=== PATIENT | female | born 1990 | race Caucasian/White ===

== ENCOUNTER 2017-04-06 09:01 | Day surgery (SDC) | payer OTHER ==
[2017-03-30 13:53] LABS: BASOPHIL % 0.4 % (0-2); PLATELET COUNT 237 x10^3mcL (130-400)
[2017-03-30 14:00] LABS: RED CELL DISTRIBUTION WIDTH 18.4 % (11.5-14.5)
[2017-03-30 14:19] LABS: ALBUMIN 3.2 g/dL (3.4-5.0); ALKALINE PHOSPHATASE 66 U/L (46-116); ALT/SGPT 88 U/L (14-59); AST/SGOT 37 U/L (15-37); BILIRUBIN TOTAL 0.2 mg/dL (0.20-1.00); CALCIUM 8.7 mg/dL (8.5-10.1); CHLORIDE SERUM 106 mmol/L (98-107); CHOLESTEROL 147 mg/dL (<200); CREATININE SERUM 0.7 mg/dL (0.6-1.0); GFR1 > 60 mL/min; GLUCOSE SERUM 106 mg/dL (74-106); LACTIC DEHYDROGENASE (LDH) 162 U/L (100-190); PHOSPHOROUS 3.8 mg/dL (2.5-4.9); POTASSIUM SERUM 3.9 mmol/L (3.5-5.1); SODIUM SERUM 137 mmol/L (136-145); TOTAL PROTEIN, SERUM 7.8 g/dL (6.4-8.2); URIC ACID 5.1 mg/dL (2.6-6.0)
[~2017-04-06] VITALS: Ht 160 cm; Wt 124.7 kg
[2017-04-06 09:09] VITALS: BP 131/97
[2017-04-06 16:00] VITALS: BP 110/72
== END 2017-04-06 16:00 | disposition home or self-care (01) ==
LOC: DS 09:01 → OR 11:00 → DS 11:00
PROVIDERS: Surgery
PROC: 0FT44ZZ Resection of Gallbladder, Percutaneous Endoscopic Approach (ICD-10-PCS; principal; 2017-04-06 11:00)
DX: K80.00 Calculus of gallbladder with acute cholecystitis without obstruction (principal); E66.01 Morbid (severe) obesity due to excess calories; Z68.42 Body mass index [BMI] 45.0-49.9, adult
CPT/HCPCS: J0330; J0690; J2175; J2250; J2704; J2710; J2765; J3010; J3490; J7120